=== PATIENT | female | born 1955 | race Caucasian/White ===

== ENCOUNTER 2016-12-12 10:30 | Emergency (ER) | payer OTHER ==
[2016-12-12 10:54] VITALS: BP 125/72; PULSE 84; TEMP 98.1; BMI 42.5
[2016-12-12] MEDS ORDERED: KETOROLAC TROMETHAMINE 60 MG/2 ML VIAL IM ONE (11:37)
--- NOTE | 2016-12-12 11:44 | PDOC ---
History of Present Illness - General Chief Complaint: Pain, Acute Stated Complaint: KNEE PAIN Time Seen by Provider: 12/12/16 11:26 History Source: Patient Exam Limitations: No Limitations - History of Present Illness Initial Comments: 12/12/16 11:46 CHIEF COMPLAINT:left knee pain with swelling HISTORY OF PRESENT ILLNESS: She is a 61-year-old female with a history of asthma , obesity, fibromyalgia, arthritis, hsv-lormdji-drindtadv diabetes, here today complaining of worsening left knee pain times one month. Patient reports that he gives out at times. Patient reports that pain is getting worse and radiates slightly to proximal left thigh and proximal calf. Patient reports that she took Tylenol yesterday for pain with some relief of pain. Patient reports that she is no longer able to walk any distance is due to having difficulty bending and straightening her left knee. Patient has not seen any orthopedist or had any medical evaluation for left knee problems.She is ambulating with a limp. 12/12/16 13:22 Occurred: reports: other (one month ) Severity: Yes: moderate (left knee ) Lower Extremity Pain Location: left: knee Method of Injury: Yes: unknown Modifying Factors: improves with: None Lower Ext. Injury Location - Specific Injury Location Knees: left swelling, left pain Extremity Pain Location - Extremity Pain Location Extremity Pain Locations: left: knee Past History - Past Medical History Allergies/Adverse Reactions: Allergies Allergy/AdvReac Type Severity Reaction Status Date / Time No Known Allergies Allergy Verified 12/12/16 10:53 Home Medications: Ambulatory Orders Naproxen [Naprosyn -] 500 mg PO BID PRN #14 tablet 12/12/16 Asthma: Yes GI Disorders: Yes (HERNIA) Other medical history: ARTHRITIS, FIBROMYALGIA - Psycho/Social/Smoking Cessation Hx Anxiety: No Suicidal Ideation: No Smoking History: Never smoked Hx Alcohol Use: No Drug/Substance Use Hx: No Substance Use Type: None Review of Systems - Review of Systems Able to Perform ROS?: Yes Constitutional: No: Symptoms Reported HEENTM: No: Symptoms Reported Respiratory: No: Symptoms reported Cardiac (ROS): No: Symptoms Reported ABD/GI: No: Symptoms Reported Musculoskeletal: Yes: Joint Pain (left knee), Joint Swelling (minimal left knee) , Other (tamara at times) Integumentary: No: Symptoms Reported Neurological: No: Symptoms reported *Physical Exam - Vital Signs Last Vital Signs Temp Pulse Resp BP Pulse Ox 98.1 F 84 16 125/72 97 12/12/16 10:49 12/12/16 10:49 12/12/16 10:49 12/12/16 10:49 12/12/16 10:49 - Physical Exam General Appearance: Yes: Appropriately Dressed Respiratory/Chest: positive: Lungs Clear, Normal Breath Sounds. negative: Chest Tender, Respiratory Distress Cardiovascular: positive: Regular Rhythm, Regular Rate, S1, S2 Vascular Pulses: Doralis-Pedis (L): 4+ Extremity: positive: Normal Capillary Refill, Normal Range of Motion, Tender ( left knee), Swelling (mininal left suprapatella ), Other (slight anterior drawer left knee, kvng negative, + pivot test left knee ). negative: Normal Inspection (slight edema suprapatella ) Integumentary: positive: Swelling (left suprapatella ) Neurologic: positive: Normal Response ED Treatment Course - RADIOLOGY Radiology Studies Ordered: Category Date Time Status KNEE 3 POS-LEFT [RAD] Stat Radiology 12/12/16 11:38 Ordered Medical Decision Making - Medical Decision Making 12/12/16 11:48 She is a 61-year-old female with a history of asthma, obesity, fibromyalgia, arthritis, wqg-zyjexre-thywopiqh diabetes, here today complaining of worsening left knee pain times one month. Patient reports that he gives out at times. Patient reports that pain is getting worse and radiates slightly to proximal left thigh and proximal calf. Patient reports that she took Tylenol yesterday for pain with some relief of pain. Patient reports that she is no longer able to walk any distance is due to having difficulty bending and straightening her left knee. Patient has not seen any orthopedist or had any medical evaluation for left knee problems. left knee pain r/o anuj abnormality, joint effusion PLAN: toradol 60 mg IM now xray left knee no anuj abnormality noted, no joint effusion per Dr. Reza pt has cane at home stevan wrap 6 inches left knee ' ortho follow up naprosyn 500 mg bid prn pain # 14 tabs 12/12/16 13:17 12/12/16 13:22 *DC/Admit/Observation/Transfer Diagnosis at time of Disposition: Knee pain, left Qualifiers: Chronicity: acute Qualified Code(s): M25.562 - Pain in left knee - Discharge Dispostion Disposition: HOME Condition at time of disposition: Stable - Prescriptions Prescriptions: Naproxen [Naprosyn -] 500 mg PO BID PRN #14 tablet PRN Reason: Pain - Referrals Referrals: STAFF,NOT ON [Primary Care Provider] - Yunier Monique MD [Staff Physician] - - Patient Instructions Additional Instructions: Follow-up with orthopedist as soon as possible make sure that you tell them that she was seen here when making the appointment Wear Stevan wrap on left knee during the day take off at night and use Cane for ambulation Return to emergency room if symptoms worsen Patient voiced understanding of discharge instructions and all questions were answered
[2016-12-12] MEDS ORDERED: KETOROLAC TROMETHAMINE 60 MG/2 ML VIAL ONE (11:54)
== END 2016-12-12 13:24 | disposition home or self-care (01) ==
LOC: JERFT 10:30
PROC: 3E0233Z Introduction of Anti-inflammatory into Muscle, Percutaneous Approach (ICD-10-PCS; principal; 2016-12-12)
DX: M25.562 Pain in left knee (principal); J45.909 Unspecified asthma, uncomplicated; E66.9 Obesity, unspecified; Z68.41 Body mass index [BMI] 40.0-44.9, adult; M79.7 Fibromyalgia; M19.90 Unspecified osteoarthritis, unspecified site; E11.9 Type 2 diabetes mellitus without complications
CPT/HCPCS: 73562-TC-LT; 96372; 99281-25

== ENCOUNTER 2021-08-04 09:40 | Emergency (ER) | payer OTHER ==
[2021-08-04 10:16] VITALS: BMI 41.7
[2021-08-04] MEDS ORDERED: SODIUM CHLORIDE 0.9% 500 ML INFUS.BAG IV ONE (10:54)
[2021-08-04] MEDS ORDERED: METOCLOPRAMIDE HCL INJECTION 10 MG/2 ML VIAL IVPUSH ONE (10:54)
[2021-08-04] MEDS ORDERED: ACETAMINOPHEN 1000 MG/100 ML BAG IVPB ONE (10:56)
[2021-08-04] MEDS ORDERED: MECLIZINE HCL 25 MG TABLET (FP) PO ONE ×2 (10:57→15:32)
[2021-08-04] MEDS ORDERED: MECLIZINE HCL 25 MG TABLET (FP) ONE ×3 (12:33→16:50)
[2021-08-04] MEDS ORDERED: METOCLOPRAMIDE HCL INJECTION 10 MG/2 ML VIAL ONE (12:33)
[2021-08-04] MEDS ORDERED: ACETAMINOPHEN INJECTION 100 ML IVPB ONE (12:34)
[2021-08-04 12:57] LABS: EPI CELLS 13 /uL (0-25.1); HYALINE CASTS 0 /uL (0-3.1); URINE APPEARANCE CLEAR; URINE BACTERIA 175 /uL (0-1359); URINE BILIRUBIN NEGATIVE (NEGATIVE); URINE COLOR YELLOW; URINE GLUCOSE (UA) 3+ (NEGATIVE); URINE KETONE NEGATIVE (NEGATIVE); URINE LEUK ESTERASE NEGATIVE (NEGATIVE); URINE NITRITE NEGATIVE (NEGATIVE); URINE PROTEIN 3+ (NEGATIVE); URINE RBC 8 /uL (0-23.9); URINE UROBILINOGEN 0.2 mg/dL (0.2-1.0); URINE WBC 5 /uL (0-25.8)
[2021-08-04 13:04] LABS: BASO % 0.5 % (0-2.0); EOS % 1.3 % (0-4.5); HEMATOCRIT 43.7 % (32.4-45.2); HEMOGLOBIN 14.3 GM/dL (10.7-15.3); LYMPH % 25.9 % (8-40); MCH 29.9 pg (25.7-33.7); MCHC 32.6 g/dl (32.0-36.0); MEAN CELL VOLUME 91.7 fl (80-96); MEAN PLT VOLUME 8.7 fl (7.5-11.1); MONO % 4.7 % (3.8-10.2); NEUT % 67.6 % (42.8-82.8); PLATELET COUNT 304 10^3/uL (134-434); RBC 4.76 M/mm3 (3.60-5.2); RDW 14.1 % (11.6-15.6); WHITE BLOOD COUNT 10.6 K/mm3 (4.0-10.0)
[2021-08-04 13:25] LABS: CHLORIDE 102 mmol/L (98-107); SODIUM 135 mmol/L (136-145)
[2021-08-04 13:28] LABS: CALCIUM 9.1 mg/dL (8.5-10.1); CO2 28 mmol/L (21-32); GLUCOSE,RANDOM 323 mg/dL (74-106)
[2021-08-04 13:29] LABS: BLOOD UREA NITROGEN 12.8 mg/dL (7-18)
[2021-08-04 13:31] LABS: CREATININE 0.7 mg/dL (0.55-1.3); SGOT/AST 69 U/L (15-37)
[2021-08-04 13:32] LABS: SGPT/ALT 41 U/L (13-61)
[2021-08-04 13:33] LABS: BILIRUBIN,TOTAL 0.5 mg/dL (0.2-1); TOT PROT 7.7 g/dl (6.4-8.2)
[2021-08-04 13:34] LABS: ALK PHOS 139 U/L (45-117)
[2021-08-04 13:48] LABS: ANION GAP 5 MMOL/L (8-16)
[2021-08-04 18:18] LABS: CHLORIDE 103 mmol/L (98-107); SODIUM 137 mmol/L (136-145)
[2021-08-04 18:20] LABS: ANION GAP 7 MMOL/L (8-16); BLOOD UREA NITROGEN 12.7 mg/dL (7-18); CO2 27 mmol/L (21-32); GLUCOSE,RANDOM 279 mg/dL (74-106)
[2021-08-04 18:23] LABS: CREATININE 0.6 mg/dL (0.55-1.3)
[2021-08-04 18:39] VITALS: BP 116/60; PULSE 77; TEMP 98.3
== END 2021-08-04 20:06 | disposition home or self-care (01) ==
LOC: JER 09:40
PROC: 3E0333Z Introduction of Anti-inflammatory into Peripheral Vein, Percutaneous Approach (ICD-10-PCS; principal; 2021-08-04)
PROC: 3E033GC Introduction of Other Therapeutic Substance into Peripheral Vein, Percutaneous Approach (ICD-10-PCS; 2021-08-04)
PROC: 3E0233Z Introduction of Anti-inflammatory into Muscle, Percutaneous Approach (ICD-10-PCS; 2021-08-04)
DX: R10.13 Epigastric pain (principal)
CPT/HCPCS: 36415; 70450-TC; 70496-TC; 70498-TC; 71045-TC-FY; 80048; 80053; 81003; 82550; 84484; 85025; 87086; 93005; 93010; 96372; 96374; 96375; 99285-25; J0131